=== PATIENT | male | born 1940 | race Caucasian/White ===

== ENCOUNTER 2018-03-10 10:23 | Day surgery (SDC) | payer MEDICARE ==
[2018-03-09 11:47] VITALS: BMI 25.7
[2018-03-10] MEDS ORDERED: Fentanyl 100 MCG/2 ML VIAL ONE ×2 (11:33→11:54)
[2018-03-10 12:40] LABS: Calc. Creatinine Clearance 95 mL/min (70-130); Estimated GFR-MDRD Greater than 90
[2018-03-10] MEDS ORDERED: HYDROcodone/Acetaminophen 5/325 mg Tablet ONE (14:42)
--- NOTE | 2018-03-10 14:51 | MRI ---
MRI OF THE LUMBAR SPINE WITH AND WITHOUT CONTRAST: Date: 03-10-18 Comparison: None. History: Back pain, history of colon cancer with metastatic disease. Technique: Multiplanar, multisequence MRI images were obtained of the lumbar spine with and without c ontrast. FINDINGS: Based on numbering from the thoracic spine MRI, there appear to be six lumbar type vertebral bodies a nd this study will be dictated assuming six lumbar type vertebral bodies. There is a STIR hyperintense enhancing lesion at the L1 level measuring 1.1 cm. There is a probable a dditional enhancing lesion within the superior aspect of L2 measuring 6 mm. The L3 vertebral body demonstrates complete replacement of the normal marrow signal with abnormal dec reased T1 and T2 signal with enhancement, evidence of extensive replacement with tumor. There is asso ciated tumor extension into the anterior epidural space, left greater than right, with associated trino tral canal stenosis/left lateral recess stenosis. Tumor also extends into the left neural foramen at L3-4 on the left with associated left neural foraminal stenosis. There is abnormal enhancement at the S2 level in the midline sagittal region. There is also abnormal enhancement and increased T2 signal in the region of the bilateral sacral ala with linear T1 hypointe nse fracture lines which are suspicious for sacral insufficiency fractures. T12-L1: No central canal or neural foraminal stenosis. L1-2: No central canal or neural foraminal stenosis. L2-3: Mild bilateral facet hypertrophy with no significant central canal or neural foraminal stenosis . L3-4: As mentioned above, anterior epidural tumor causes central canal stenosis, mild to moderate in severity, with prominent left lateral recess stenosis and a moderate degree of left neural foraminal stenosis. No right neural foraminal stenosis. L4-5: There is a post foraminal/foraminal annular tear and associated disc protrusion on the left. Th ere is bilateral facet hypertrophy. There is mild left neural foraminal stenosis. No significant cent ral canal or right neural foraminal stenosis. L5-6: There is disc space narrowing and disc desiccation with mild disc bulge and small disc protrusi on in the right foraminal region. Bilateral facet hypertrophy noted, right greater than left. Mild ri ght neural foraminal stenosis. No central canal or left neural foraminal stenosis. L6-S1: Bilateral facet hypertrophy. There is disc space narrowing, disc desiccation and mild disc bul ge. Mild bilateral neural foraminal stenosis and mild central canal stenosis. Imaged retroperitoneal structures demonstrate no acute findings. Post contrast imaging demonstrates n o abnormal enhancement involving the nerve roots of the cauda equina. IMPRESSION: 1. Multifocal osseous metastatic disease. This is most significant at the level of the L3 vertebral b trista (assuming 6 lumbar type vertebral bodies) where the L3 vertebral body is completely replaced with tumor and there is epidural tumor causing central canal stenosis/left lateral recess stenosis/left n eural foraminal stenosis. Areas of incompletely assessed signal abnormality noted within the sacrum w hich are felt to most likely be on the basis of sacral insufficiency fractures. These areas are incom pletely assessed on this examination and metastatic disease in the region of the sacrum cannot be ful ly excluded. 2. Results called to Monica Kumar at 4:30pm at approximately 1:55 p.m. 03-10-18. Code CR POS: [facility]
--- NOTE | 2018-03-10 14:54 | MRI ---
MRI THORACIC SPINE WITH AND WITHOUT CONTRAST: 03/10/2018 HISTORY: Back pain and radiculopathy. History of metastatic colon cancer. TECHNIQUE: Multiplanar, multisequence MR imaging of the thoracic spine is provided with and without contrast. FINDINGS: There are multiple vertebral body lesions within the thoracic spine, which are hyperintense on the ST IR imaging. This includes a lesion along the posterior-superior aspect of T10, measuring 8 mm, a les ion along the posterior aspect of T9, measuring 1.6 cm, and a lesion involving the majority of the T8 vertebral body. There is also a lesion within T4, measuring 8 mm. An incompletely assessed L1 lesi on is seen, measuring 1.3 cm. There is mild anterior wedging of the T8 vertebral body, which suggests an age indeterminate mild ant erior wedge compression fracture with approximately 20% loss of vertebral body height anteriorly. There is no focal area of abnormal signal intensity identified within the imaged spinal cord. C7-T1: Mild bilateral facet hypertrophy with no central canal or neural foraminal stenosis. T1-T2: Mild facet hypertrophy bilaterally with no central canal or neural foraminal stenosis. T2-T3: No central canal or neural foraminal stenosis. T3-T4: No central canal or neural foraminal stenosis. T4-T5: No central canal or neural foraminal stenosis. T5-T6: No central canal or neural foraminal stenosis. T6-T7: No central canal or neural foraminal stenosis. T7-T8: No central canal or neural foraminal stenosis. T8-T9: No central canal or neural foraminal stenosis. T9-T10: Mild anterior osteophyte formation on the right with no central canal or neural foraminal st enosis. T10-T11: Mild anterior osteophyte formation on the right with no significant central canal or neural foraminal stenosis. T11-T12: No central canal or neural foraminal stenosis. T12-L1: No central canal or neural foraminal stenosis. Post contrast imaging demonstrates enhancement of the above described vertebral body lesions at T4, T 8, T9, T10, and L1, suspicious for multifocal osseous metastatic disease. IMPRESSION: Multiple enhancing vertebral body lesions, highly suspicious for multifocal osseous metastatic diseas e. There is increased T2 signal seen throughout the T8 vertebral body with mild anterior wedging in the 20% range. A mild degree of pathologic fracture cannot be excluded. No significant central gianluca l or neural foraminal stenosis noted within the thoracic spine. POS: [facility]
== END 2018-03-10 15:10 | disposition home or self-care (01) ==
LOC: SDC/OP 10:23
PROVIDERS: ATTEND Neurological Surgery
DX: C79.51 Secondary malignant neoplasm of bone (principal); E78.00 Pure hypercholesterolemia, unspecified; K21.9 Gastro-esophageal reflux disease without esophagitis; M54.14 Radiculopathy, thoracic region; Z79.899 Other long term (current) drug therapy; Z87.891 Personal history of nicotine dependence; Z85.038 Personal history of other malignant neoplasm of large intestine
CPT/HCPCS: 36415; 72157; 72158; 82565; J3010